=== PATIENT | female | born 1995 | race American Indian/Alaskan Native ===

== ENCOUNTER 2018-05-09 00:57 | Emergency (ER) | payer MEDICAID ==
[2018-05-09 01:13] VITALS: RESP 18
[2018-05-09] MEDS ORDERED: Tmp-Smz 800 mg-160 mg DS Tab PO STA (01:55)
--- NOTE | 2018-05-09 01:58 | C.PDOC ---
History Of Present Illness 23 y/o female with a PMHx of multiple abscesses, usually treated with Keflex, presents to the ED complaining that for the past 3-4 days her abscesses are worse. Abscesses are located to her bilateral inner thighs, the crease of breast, and at the posterior base of her scalp. None are fluctuant. Otherwise she denies any fever, chills, or drainage. Time Seen by Provider: 05/09/18 01:24 Chief Complaint (Nursing): Abnormal Skin Integrity History Per: Patient History/Exam Limitations: no limitations Onset/Duration Of Symptoms: Days Current Symptoms Are (Timing): Worse Past Medical History Reviewed: Historical Data, Nursing Documentation, Vital Signs Vital Signs: Last Vital Signs Temp 99.4 F 05/09/18 01:06 Pulse 106 H 05/09/18 01:06 Resp 18 05/09/18 01:06 BP 136/84 05/09/18 01:06 Pulse Ox 99 05/09/18 01:06 - Medical History PMH: Asthma - [facility] Procedures MONITORING NOS (12/03/12) REPAIR OB LACERATION NEC (12/03/12) VACUUM EXTRACT DEL NEC (12/03/12) Family History: States: Unknown Family Hx - Social History Hx Alcohol Use: Yes Hx Substance Use: No - Immunization History Hx Tetanus Toxoid Vaccination: No Hx Influenza Vaccination: Yes Hx Pneumococcal Vaccination: No Review Of Systems Constitutional: Negative for: Fever, Chills Cardiovascular: Negative for: Chest Pain Respiratory: Negative for: Shortness of Breath Skin: Positive for: Other (multiple abscesses to thighs, breast, and posterior scalp). Negative for: Rash Neurological: Negative for: Weakness, Headache Physical Exam - Physical Exam Appears: Well, Non-toxic, No Acute Distress Skin: Warm, No Rash, Other (Multiple abscesses to the bilateral inner thighs, crease of breast, and posterior base of her scalp; None fluctuant or draining at present) Head: Atraumatic, Normacephalic Eye(s): bilateral: Normal Inspection (no scleral icterus) Oral Mucosa: Moist Neck: Normal ROM Chest: Symmetrical Respiratory: No Accessory Muscle Use, Other (Normal inspiratory effort) Extremity: Bilateral: Atraumatic, Normal ROM Pulses: Left Radial: Normal, Right Radial: Normal Neurological/Psych: Oriented x3, Normal Cranial Nerves ED Course And Treatment O2 Sat by Pulse Oximetry: 99 (RA) Pulse Ox Interpretation: Normal Medical Decision Making Medical Decision Making: Impression: hidradenitis suppurativa Patient given Bactrim and Keflex. Counseled regarding diagnosis and discharge plan. 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 - Scribe Statement The provider has reviewed the documentation as recorded by the Moisesibferny Coats All medical record entries made by the Moisesibferny were at my direction and personally dictated by me. I have reviewed the chart and agree that the record accurately reflects my personal performance of the history, physical exam, medical decision making, and the department course for this patient. I have also personally directed, reviewed, and agree with the discharge instructions and disposition.
[2018-05-09] MEDS ORDERED: Tmp-Smz 800 mg-160 mg DS Tab ONE (02:06)
[2018-05-09 02:13] VITALS: BP 132/78; PULSE 89; TEMP 98.6
[2018-05-09 03:52] VITALS: O2SAT 99
== END 2018-05-09 02:12 | disposition home or self-care (01) ==
LOC: C.ER 00:57 → SUPCPDRO 00:57 → C.ER 02:12
DX: L73.2 Hidradenitis suppurativa (principal)